=== PATIENT | female | born 1975 | race African-American/Black ===

== ENCOUNTER 2023-09-17 09:29 | Emergency (ER) | payer OTHER ==
[~2023-09-17] VITALS: Ht 177.8 cm; Wt 104.3 kg
[2023-09-17 09:37] VITALS: BP_SYST 204; PULSE 92; RESP 22; TEMP 98.3; O2SAT 98
[2023-09-17] MEDS ORDERED: LORazepam 1 MG TABLET ONE (10:18)
[2023-09-17] MEDS: LORazepam 1 MG TABLET PO ONE (10:30)
[2023-09-17 11:40] VITALS: BP_SYST 159; PULSE 92; RESP 22; TEMP 98.3; O2SAT 98
== END 2023-09-17 13:11 | disposition home or self-care (01) ==
LOC: SED 09:29
DX: I10 Essential (primary) hypertension (principal); F41.9 Anxiety disorder, unspecified; G47.00 Insomnia, unspecified; R53.1 Weakness; R42 Dizziness and giddiness; R00.2 Palpitations
CPT/HCPCS: 93005; 99283

== ENCOUNTER 2023-10-12 20:39 | Inpatient (IN) | payer OTHER ==
[~2023-10-12] VITALS: Ht 180.3 cm; Wt 102.1 kg
[2023-10-12 20:45] VITALS: BP_SYST 171; PULSE 79; RESP 20; TEMP 97.2; O2SAT 99
[2023-10-12 21:08] LABS: BASOPHILS % (AUTO) 0.7 % (0.0-2.0); EOSINOPHILS % (AUTO) 0.2 % (0.0-4.0); HEMATOCRIT 38.3 % (36-48); HEMOGLOBIN 13.3 g/dL (12.0-16.0); LYMPHOCYTES # (AUTO) 1.7 K/uL (1.0-5.5); LYMPHOCYTES % (AUTO) 24.1 % (20.5-51.5); MEAN CORPUSCULAR HEMOGLOBIN 32 pg (27-31); MEAN CORPUSCULAR HGB CONC 35 % (32-36); MEAN CORPUSCULAR VOLUME 91 fL (79.0-98.0); MONOCYTES # (AUTO) 0.4 K/uL (0.0-1.0); MONOCYTES % (AUTO) 5.5 % (1.7-9.3); NEUTROPHILS % (AUTO) 69.5 % (40.0-70.0); PLATELET COUNT (AUTO) 283 K/uL (130-430); RED BLOOD CELL COUNT(AUTO) 4.21 MIL/uL (4.2-6.2); WHITE BLOOD COUNT (AUTO) 7.1 K/uL (4.8-10.8)
[2023-10-12 21:44] LABS: ANION GAP 10 (5-15); CALCIUM 9.2 mg/dL (8.4-11.0); CARBON DIOXIDE 26 mmol/L (23-29); CHLORIDE 97 mmol/L (98-107); CREATININE 1.01 mg/dL (0.55-1.30); GFR AFRICAN AMERICAN 76 mL/min (>90); GFR NON AFRICAN-AMERICAN 62 mL/min (>90); POTASSIUM 3.9 mmol/L (3.5-5.1); SODIUM SERUM 133 mmol/L (136-145); UREA NITROGEN, BLOOD 15 mg/dL (8-21)
[2023-10-12 21:46] LABS: GLUCOSE 413 mg/dL (74-106)
[2023-10-12] MEDS: hydrALAZINE HCL 20 MG/ML VIAL IVP ONE (21:50)
[2023-10-12] MEDS: ASPIRIN 325 MG TABLET PO ONE (21:53)
[2023-10-12] MEDS: NACL 0.9% 1,000 ML IV ONE (21:54)
[2023-10-12] MEDS: INSULIN REGULAR, HUMAN 10 UNITS/0.1 ML, 3 ML VIAL IVP ONE (21:55)
[2023-10-13] MEDS: LABETALOL HCL 20 MG/4 ML CARTRIDGE IVP ONE (00:48)
[2023-10-13] MEDS ORDERED: AMLO5TAB4 PO ×2 (02:36→02:49)
[2023-10-13] MEDS ORDERED: METF-379 PO ×2 (02:36→02:49)
[2023-10-13] MEDS ORDERED: LOSA-413 PO ×2 (02:36→02:49)
[2023-10-13] MEDS ORDERED: DEXTROSE 50% JECT 50 ML DISP.SYRIN IVP PRN (06:30)
[2023-10-13] MEDS ORDERED: ONDANSETRON HCL 4 MG/2 ML VIAL IVP PRN (06:30)
[2023-10-13] MEDS ORDERED: HYDROcodone/ACETAMIN 5-325 MG TAB (NORCO/ VICODIN) PO PRN (06:30)
[2023-10-13] MEDS: ACETAMINOPHEN 500 MG TABLET PO ONE (07:02)
[2023-10-13] MEDS ORDERED: INSULIN REGULAR, HUMAN 10 UNITS/0.1 ML, 3 ML VIAL ONE (08:05)
[2023-10-13] MEDS ORDERED: ATEN50TA PO (08:11)
[2023-10-13] MEDS ORDERED: MELA1LIQ PO (08:11)
[2023-10-13] MEDS ORDERED: LOSA-412 PO (08:11)
[2023-10-13 08:37] VITALS: BP_SYST 175; PULSE 83; RESP 20; TEMP 98.5
[2023-10-13] MEDS: ASPIRIN 81 MG TAB.CHEW PO SCH (08:49)
[2023-10-13] MEDS: METOPROLOL SUCCINATE 25 MG TAB.SR.24H (TOPROL XL) PO SCH (08:50)
[2023-10-13] MEDS: LOSARTAN POTASSIUM 50 MG TABLET (COZAAR) PO SCH (08:50)
[2023-10-13 11:09] LABS: ALBUMIN 3.3 g/dL (3.4-4.8); CALCIUM 8.5 mg/dL (8.4-11.0); CREATININE 0.63 mg/dL (0.55-1.30); POTASSIUM 3.2 mmol/L (3.5-5.1); THYROID STIMULATING HORMONE 1.65 uIu/mL (0.34-4.82); TOTAL BILIRUBIN 0.4 mg/dL (0.0-1.0); TOTAL PROTEIN, SERUM 6.6 g/dL (6.4-8.3)
[2023-10-13 11:19] LABS: BASOPHILS % (AUTO) 0.4 % (0.0-2.0); EOSINOPHILS % (AUTO) 0.7 % (0.0-4.0); HEMOGLOBIN 12.3 g/dL (12.0-16.0); LYMPHOCYTES # (AUTO) 2.5 K/uL (1.0-5.5); LYMPHOCYTES % (AUTO) 33.8 % (20.5-51.5); MEAN CORPUSCULAR HEMOGLOBIN 31 pg (27-31); MEAN CORPUSCULAR HGB CONC 34 % (32-36); MEAN CORPUSCULAR VOLUME 91 fL (79.0-98.0); MONOCYTES # (AUTO) 0.4 K/uL (0.0-1.0); MONOCYTES % (AUTO) 5.9 % (1.7-9.3); NEUTROPHILS # (AUTO) 4.3 K/uL (1.8-7.7); NEUTROPHILS % (AUTO) 59.2 % (40.0-70.0); PLATELET COUNT (AUTO) 247 K/uL (130-430); RED BLOOD CELL COUNT(AUTO) 3.96 MIL/uL (4.2-6.2); RED CELL DISTRIBUTION WIDTH 13.1 % (9.0-15.0); WHITE BLOOD COUNT (AUTO) 7.3 K/uL (4.8-10.8)
[2023-10-13 11:40] LABS: HEMOGLOBIN A1C 13.3 % (<5.7)
[2023-10-13] MEDS: MELATONIN 3 MG TABLET PO ONE (12:00)
[2023-10-13] MEDS: POTASSIUM CHLORIDE 20 MEQ TABLET.ER PO ONE (13:55)
[2023-10-13] MEDS: amLODIPine BESYLATE 10 MG TABLET PO ONE (13:55)
[2023-10-13] MEDS: INSULIN LISPRO SLIDING SCALE 100 UNITS/ML, 3 ML VIAL (humaLOG) SUBCUT PRN (14:00)
[2023-10-13] MEDS ORDERED: hydrALAZINE HCL 20 MG/ML VIAL IVP PRN (16:00)
[2023-10-13] MEDS ORDERED: ZOLPIDEM TARTRATE 5 MG TABLET PO PRN (16:00)
[2023-10-13 16:34] VITALS: BP_SYST 150; PULSE 78; RESP 18; TEMP 98; O2SAT 100
[2023-10-13] MEDS: INSULIN Lispro 100 UNITS/ML, 3 ML VIAL (humaLOG) SUBCUT SCH (19:07)
[2023-10-13] MEDS: ACETAMINOPHEN 325 MG TABLET PO PRN (19:11)
[2023-10-13 20:00] VITALS: BP_SYST 144; PULSE 79; RESP 20; TEMP 97.5; O2SAT 98
[2023-10-13] MEDS: INSULIN GLARGINE 100 UNITS/ML, 10 ML VIAL SUBCUT SCH (21:00)
[2023-10-13] MEDS: ATORVASTATIN 20 MG TABLET PO SCH (21:00)
[2023-10-13 23:30] VITALS: O2SAT 98
[2023-10-13 23:36] VITALS: BP_SYST 138; PULSE 71; RESP 20; TEMP 99; O2SAT 98
[2023-10-13] MEDS: MELATONIN 3 MG TABLET PO PRN (23:36)
[2023-10-14] MEDS: ACETAMINOPHEN 325 MG TABLET PO PRN (03:36)
[2023-10-14 06:18] LABS: CALCIUM 8.7 mg/dL (8.4-11.0); CREATININE 0.55 mg/dL (0.55-1.30); POTASSIUM 3.6 mmol/L (3.5-5.1)
[2023-10-14 06:19] LABS: BASOPHILS % (AUTO) 0.5 % (0.0-2.0); EOSINOPHILS # (AUTO) 0.1 K/uL (0.0-0.4); EOSINOPHILS % (AUTO) 1.5 % (0.0-4.0); HEMATOCRIT 38.3 % (36-48); HEMOGLOBIN 12.8 g/dL (12.0-16.0); LYMPHOCYTES # (AUTO) 3.3 K/uL (1.0-5.5); LYMPHOCYTES % (AUTO) 46.4 % (20.5-51.5); MEAN CORPUSCULAR HEMOGLOBIN 31 pg (27-31); MEAN CORPUSCULAR HGB CONC 33 % (32-36); MEAN CORPUSCULAR VOLUME 92 fL (79.0-98.0); MONOCYTES # (AUTO) 0.4 K/uL (0.0-1.0); MONOCYTES % (AUTO) 5.7 % (1.7-9.3); NEUTROPHILS # (AUTO) 3.3 K/uL (1.8-7.7); NEUTROPHILS % (AUTO) 45.9 % (40.0-70.0); PLATELET COUNT (AUTO) 251 K/uL (130-430); RED BLOOD CELL COUNT(AUTO) 4.18 MIL/uL (4.2-6.2); RED CELL DISTRIBUTION WIDTH 13.3 % (9.0-15.0); WHITE BLOOD COUNT (AUTO) 7.2 K/uL (4.8-10.8)
[2023-10-14] MEDS: INSULIN GLARGINE 100 UNITS/ML, 10 ML VIAL SUBCUT ONE (08:30)
[2023-10-14 08:41] VITALS: BP_SYST 147; PULSE 75; RESP 16; TEMP 98.2
[2023-10-14] MEDS: amLODIPine BESYLATE 10 MG TABLET PO SCH (08:42)
[2023-10-14 10:10] VITALS: O2SAT 99
[2023-10-14] MEDS ORDERED: IBUPROFEN 400 MG TABLET PO PRN (10:15)
[2023-10-14] MEDS ORDERED: SITA50TA3 PO (10:59)
[2023-10-14] MEDS ORDERED: INSU100I26 SQ (10:59)
[2023-10-14] MEDS ORDERED: INSU100V SUBCUT (11:02)
[2023-10-14] MEDS ORDERED: LOSA-413 PO (11:37)
[2023-10-14] MEDS ORDERED: AMLO10TA88 PO (11:37)
[2023-10-14 12:41] VITALS: BP_SYST 147; PULSE 64; RESP 18; TEMP 98.8; O2SAT 98
[2023-10-14 13:03] VITALS: BP_SYST 147; PULSE 64; RESP 18; TEMP 98.8; O2SAT 98
== END 2023-10-14 15:20 | disposition home or self-care (01) | DRG 305 ==
LOC: SED 20:39 → SMU 10-13 06:17 → STU 10-13 07:45 → OBSVTOIN 10-13 14:23
PROVIDERS: ADMIT Internal Medicine; ATTEND Internal Medicine
DX: I16.0 Hypertensive urgency (principal); E11.65 Type 2 diabetes mellitus with hyperglycemia; I10 Essential (primary) hypertension; E87.6 Hypokalemia; Z79.899 Other long term (current) drug therapy; Z88.8 Allergy status to other drugs, medicaments and biological substances
CPT/HCPCS: 36415; 80048; 80053; 80061; 82948; 83037; 83880; 84443; 84484; 85025; 93005; 93306; 96375; 99285; G0378; J0360; J1815